=== PATIENT | male | born 1970 | race Caucasian/White ===

== ENCOUNTER 2020-06-04 18:06 | Emergency (ER) | payer SELFPAY ==
[~2020-06-04] VITALS: Ht 185.4 cm; Wt 104.0 kg
[2020-06-04 18:35] LABS: HEMATOCRIT 51.5 % (39.0-50.0); HEMOGLOBIN 18.1 g/dl (14.0-18.0); IMMATURE GRANULOCYTES 0.5 % (0.0-5.0); MEAN CELL VOLUME 87.6 fL CALC (80.0-100.0); MEAN CORPUSCULAR HGB 30.8 pG CALC (26.0-32.0); MEAN CORPUSCULAR HGB CONC 35.1 g/dL CAL (32.0-36.0); NEUT# 7.86 thou/uL (1.82-7.42); RED BLOOD COUNT 5.88 mill/uL (4.70-6.10); RED CELL DISTRI WIDTH 11.5 % (11.5-15.5)
[2020-06-04 18:53] LABS: ALBUMIN 4.7 g/dL (3.2-5.0); ALKALINE PHOSPHATASE 64 u/l (38-126); ANION GAP 16 (6-22 (CALC)); BILIRUBIN, TOTAL 0.8 mg/dL (0.0-1.4); BUN 14 mg/dL (9-20); BUN/CREATININE RATIO 14 (12-20 (CALC)); CARBON DIOXIDE 21 mmol/l (22-30); CHLORIDE 104 mmol/l (95-108); GFR > 60 ML/MIN (>=60 (CALC)); GFR FOR AFR.AMER. > 60 ML/MIN (>=60 (CALC)); LIPASE 92 u/l (23-300); POTASSIUM 4.2 mmol/l (3.5-5.1); SGOT/AST 73 u/l (17-59); SODIUM 137 mmol/l (137-146)
[2020-06-04 18:55] LABS: ACT PARTIAL THROMBO TIME 26.5 SECONDS (20.0-32.5); INTERNATIONAL NORMALIZED RATIO 1.1 RATIO (0.7-1.3); PROTHROMBIN TIME 10.5 SECONDS (9.0-12.5)
[2020-06-04 19:00] VITALS: BP 191/125
== END 2020-06-04 19:00 | disposition short-term general hospital (02) | DRG 282 ==
LOC: EDBD 18:06 → ED 18:06
DX: I21.3 ST elevation (STEMI) myocardial infarction of unspecified site (principal)
CPT/HCPCS: J1644